=== PATIENT | female | born 1935 | race Caucasian/White ===

== ENCOUNTER 2018-01-14 13:58 | Emergency (ER) | payer MEDICARE, BC ==
[2018-01-14] MEDS ORDERED: XYLOCAINE 1% HCL 20 ML MDV ONE (14:13)
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
[2018-01-14] MEDS ORDERED: KEFLEX 250 MG/5 ML SUSP PO ONE (14:18)
[2018-01-14] MEDS ORDERED: Adacel Vial IM ONE ×2 (14:19→14:36)
[2018-01-14] MEDS ORDERED: KEFLEX 250 MG/5 ML SUSP ONE (14:36)
[2018-01-14] MEDS ORDERED: XYLOCAINE 1% HCL 20 ML MDV IJ ONE (14:40)
[2018-01-14 14:52] VITALS: BP 161/60; PULSE 97; O2SAT 99
== END 2018-01-14 14:51 | disposition home or self-care (01) ==
LOC: ED 13:58
DX: S01.81XA Laceration without foreign body of other part of head, initial encounter (principal); W20.8XXA Other cause of strike by thrown, projected or falling object, initial encounter
CPT/HCPCS: 12002; 90471; 90715; 99284; A9270-GY

== ENCOUNTER 2019-07-01 14:14 | Emergency (ER) | payer MEDICARE ==
[2019-07-01] MEDS ORDERED: XYLOCAINE 1%/Epi 1:100000 MDV 20 ML IJ ONE (15:14)
[2019-07-01] MEDS ORDERED: XYLOCAINE 1%/Epi 1:100000 MDV 20 ML ONE (15:15)
--- NOTE | 2019-07-01 15:29 | ERPHSYRPT ---
- History of Present Illness Time Seen by Provider: 07/01/19 14:45 Source: patient Exam Limitations: no limitations Patient Subjective Stated Complaint: "about 45 min ago I accidentally walked into a wall and hit my forehead on the wall" Triage Nursing Assessment: Aaox3, walked in, color good, c/o laceration to forehead s/p walked into a wall at home approx 45 min ago. Denies loss of conscioiusness, perrla, small laceration to left side upper forehead noted. No active bleeding at this time. Denies other injuries. Does c/o headache at this time. Laceration cleansed with ns and hibiclens soln here in ER. Physician History: Pt is an 84 yo female who has made degeneration and because of her decreased vision turned and hit her head on a cabinet. No loc. no other injury. Occurred: just prior to arrival Severity: mild Head Injury Location: frontal Method of Injury: direct blow, incised Loss of Consciousness: no loss of consciousness Associated Symptoms: denies symptoms Allergies/Adverse Reactions: No Known Drug Allergies Allergy (Unverified 01/14/18 14:09) Home Medications: Levothyroxine Sodium 175 mcg PO DAILY 01/14/18 [History] Lisinopril 40 mg PO DAILY 01/14/18 [History] Hx Tetanus, Diphtheria Vaccination/Date Given: Yes (2 years ago had dt states patient) Hx Influenza Vaccination/Date Given: Yes Hx Pneumococcal Vaccination/Date Given: No Immunizations Up to Date: Yes - Review of Systems Constitutional: No Fever, No Chills Eyes: No Symptoms Ears, Nose, & Throat: No Symptoms Respiratory: No Cough, No Dyspnea Cardiac: No Chest Pain, No Edema, No Syncope Abdominal/Gastrointestinal: No Abdominal Pain, No Nausea, No Vomiting, No Diarrhea Genitourinary Symptoms: No Dysuria Musculoskeletal: No Back Pain, No Neck Pain Skin: No Rash Neurological: No Dizziness, No Focal Weakness, No Sensory Changes Psychological: No Symptoms Endocrine: No Symptoms All Other Systems: Reviewed and Negative - Past Medical History Pertinent Past Medical History: Yes Neurological History: No Pertinent History Cardiac History: Hypertension Respiratory History: No Pertinent History Endocrine Medical History: Hypothyroidism Musculoskeletal History: Arthritis - Past Surgical History Past Surgical History: No - Social History Smoking Status: Former smoker Exposure to second hand smoke: No Drug Use: none Patient Lives Alone: No - Female History Hx Now: No - Nursing Vital Signs Nursing Vital Signs: Initial Vital Signs Temperature 97.8 F 07/01/19 14:34 Pulse Rate 80 07/01/19 14:34 Respiratory Rate 18 07/01/19 14:34 Blood Pressure 186/76 07/01/19 14:34 O2 Sat by Pulse Oximetry 98 07/01/19 14:34 Pain Scale Pain Intensity 3 - Sanjiv Coma Score Best Eye Response ([place]): (4) open spontaneously Best Verbal Response (Sanjiv): (5) oriented Best Motor Response (Sanjiv): (6) obeys commands Sanjiv Total: 15 - Physical Exam General Appearance: no apparent distress, alert Head Injury: lacerations (2.5 cm laceration left frontal scalp) SpO2: 98 Procedures - Laceration/Wound Repair Left Anterior Head Wound Location: Left, forehead Wound Length (cm): 2.5 Wound's Depth, Shape: superficial, linear Wound Explored: no foreign body noted Irrigated: Yes Hibiclens Prep: Yes Anesthesia: 1% lidocaine w/ Epi Volume Anesthetic (ccs): 5 Wound Debrided: minimal Wound Repaired With: [place] Number of Sutures: 6 Layer Closure?: No Number Deep Layer Sutures: 0 Sterile Dressing Applied?: No Splint Applied?: No Sling Applied?: No - Course Nursing assessment & vital signs reviewed: Yes Ordered Tests: Medication Summary Discontinued Medications Generic Name Dose Route Start Last Admin Trade Name Freq PRN Reason Stop Dose Admin Lidocaine/Epinephrine 5 ml 07/01/19 15:14 Xylocaine 1%/Epi 1:906210 Mdv 20 Ml IJ 07/01/19 15:15 STAT ONE Lidocaine/Epinephrine Confirm 07/01/19 15:15 Xylocaine 1%/Epi 1:[id number] Mdv 20 Ml Administered 07/01/19 15:16 Dose 5 ml .ROUTE .STK-MED ONE - Progress Progress: improved - Departure Departure Disposition: Home Clinical Impression: Laceration of scalp Condition: Stable Critical Care Time: No Referrals: MATTIE SANZ [Primary Care Provider] - Additional Instructions: katy out 5 daysLACERATION CARE 1. Do not use peroxide, merthiolate, alcohol, or betadine. 2. Keep wound clean and dry. 3. Change dressing if it becomes wet or soiled. 4. If you must work, wear protective covering. 5. You may return to the emergency department or see your family physician for suture removal. 6. See your family physician or return to the emergency department for any of the following signs or symptoms: A. Redness B. Swelling C. Discolored drainage D. Red streaks E. Elevated temperature F. Other signs of infection
[2019-07-01 16:12] VITALS: BP 143/79; PULSE 76; O2SAT 97
== END 2019-07-01 16:12 | disposition home or self-care (01) ==
LOC: ED 14:14
DX: S01.01XA Laceration without foreign body of scalp, initial encounter (principal); W22.01XA Walked into wall, initial encounter; Z79.899 Other long term (current) drug therapy; I10 Essential (primary) hypertension
CPT/HCPCS: 12001; 96372; 99283

== ENCOUNTER 2023-07-11 17:03 | Emergency (ER) | payer MEDICARE ==
[2023-07-11 17:40] VITALS: TEMP 97.4
[2023-07-11 18:05] VITALS: BP 162/83; PULSE 82; RESP 17; O2SAT 95
--- NOTE | 2023-07-11 18:14 | ERPHSYRPT ---
- History of Present Illness Time Seen by Provider: 07/11/23 17:36 Source: patient, family Exam Limitations: no limitations Patient Subjective Stated Complaint: Pt states "My blood pressure was up today and I have had a bad headache." Triage Nursing Assessment: Pt presented alert and oriented X 3, skin pwd. Pt ambulates iwtha n upright steady gait, able to speak in clear full sentences. Pt resting comfortably on the bed. Physician History: 88-year-old female with history of hypertension, hyperlipidemia, hypothyroidism presented in the ER with chief complaint of elevated blood pressure. Patient reports earlier her blood pressure was 213 systolic at home and she was having generalized headache with a feeling of pressure and soreness around all over her head. Blood pressure improved on its own and during my evaluation is in 140s. She has no headache at all. Denies any numbness tingling focal weakness, chest pain palpitations shortness of breath, abdominal pain or visual disturbance while she was having a headache or elevated blood pressure. Patient reports usually her blood pressure is less than 150 with current medications. No recent increased salt intake. Patient is stressed out from her assisted living neighbor who is bothering her again and again about a wandering dog for the last few days. Patient reports this give her a lot of anxiety even thinking about the dog. She is symptom-free currently. She wants to go home and does not want any workup done offered to her including EKG and CT head/chest x-ray. Her son who brought her also does not want anything to be done. Her exam is nonfocal, lungs bilateral clear to auscultation. Not in any distress. She is thoroughly counseled and recommended taking Tylenol as needed for headache and avoid NSAIDs. Discussed signs symptoms of worsening needing return to ER which she seems understanding. She is advised to keep a blood pressure log and follow-up with her primary care for reevaluation. Allergies/Adverse Reactions: No Known Drug Allergies Allergy (Verified 07/11/23 17:40) Home Medications: Levothyroxine Sodium 175 mcg PO DAILY 01/14/18 [History] lisinopriL [Lisinopril] 40 mg PO DAILY 01/14/18 [History] Diltiazem HCl [Cardizem LA] 120 mg PO DAILY 07/11/23 [History] Hx Tetanus, Diphtheria Vaccination/Date Given: Yes (2 years ago had dt states patient) Hx Influenza Vaccination/Date Given: Yes Hx Pneumococcal Vaccination/Date Given: No Immunizations Up to Date: No Travel Risk - International Travel Have you traveled outside of the country in past 3 weeks: No - Coronavirus Screening Are you exhibiting any of the following symptoms?: No Close contact with a COVID-19 positive Pt in past 14-21 Days: No - Vaccine Status Have you recieved a Covid-19 vaccination: Yes 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 - Vaccination Dates Date of 2cond Vaccination (if applicable): 2020 - Review of Systems Constitutional: No Symptoms Eyes: No Symptoms Ears, Nose, & Throat: No Symptoms Respiratory: No Symptoms Cardiac: No Symptoms Abdominal/Gastrointestinal: No Symptoms Genitourinary Symptoms: No Symptoms Musculoskeletal: No Symptoms Skin: No Symptoms Neurological: No Symptoms Endocrine: No Symptoms Hematologic/Lymphatic: No Symptoms - Past Medical History Pertinent Past Medical History: Yes Neurological History: No Pertinent History Cardiac History: Hypertension Respiratory History: No Pertinent History Endocrine Medical History: Hypothyroidism Musculoskeletal History: Arthritis - Past Surgical History Past Surgical History: Yes Other Surgical History: hysterectomy. bilat hip. left knee - Social History Smoking Status: Former smoker Exposure to second hand smoke: No Drug Use: none Patient Lives Alone: No - Nursing Vital Signs Nursing Vital Signs: Initial Vital Signs Temperature 97.4 F 07/11/23 17:36 Pulse Rate 114 H 07/11/23 17:36 Respiratory Rate 22 07/11/23 17:36 Blood Pressure 215/101 07/11/23 17:36 O2 Sat by Pulse Oximetry 98 07/11/23 17:36 Pain Scale Pain Intensity 0 - Physical Exam General Appearance: no apparent distress, alert Eye Exam: PERRL/EOMI Ears, Nose, Throat Exam: normal ENT inspection, TMs normal, pharynx normal, moist mucous membranes Neck Exam: normal inspection, non-tender, supple, full range of motion Respiratory Exam: normal breath sounds, lungs clear Cardiovascular Exam: regular rate/rhythm, normal heart sounds Gastrointestinal/Abdomen Exam: soft, normal bowel sounds, No tenderness Back Exam: normal inspection Extremity Exam: normal inspection, normal range of motion, pelvis stable Neurologic Exam: alert, oriented x 3, cooperative, investment broker II-XII nml as tested, nml cerebellar function, nml station & gait, sensation nml, No normal mood/affect (Anxious), No motor deficits SpO2 Interpretation: normal SpO2: 95 O2 Delivery: Room Air - Progress Progress: improved Progress Note: 07/11/23 18:13 88-year-old female with history of hypertension, hyperlipidemia, hypothyroidism presented in the ER with chief complaint of elevated blood pressure. Patient reports earlier her blood pressure was 213 systolic at home and she was having generalized headache with a feeling of pressure and soreness around all over her head. Blood pressure improved on its own and during my evaluation is in 140s. She has no headache at all. Denies any numbness tingling focal weakness, chest pain palpitations shortness of breath, abdominal pain or visual disturbance while she was having a headache or elevated blood pressure. Patient reports usually her blood pressure is less than 150 with current medications. No recent increased salt intake. Patient is stressed out from her assisted living neighbor who is bothering her again and again about a wandering dog for the last few days. Patient reports this give her a lot of anxiety even thinking about the dog. She is symptom-free currently. She wants to go home and does not want any workup done offered to her including EKG and CT head/chest x-ray. Her son who brought her also does not want anything to be done. Her exam is nonfocal, lungs bilateral clear to ausc ultation. Not in any distress. She is thoroughly counseled and recommended taking Tylenol as needed for headache and avoid NSAIDs. Discussed signs symptoms of worsening needing return to ER which she seems understanding. She is advised to keep a blood pressure log and follow-up with her primary care for reevaluation. Counseled pt/family regarding: diagnosis, need for follow-up Medical Desision Making - Independent Historian Additional History obtained from: Child - Departure Departure Disposition: Home Clinical Impression: Uncontrolled hypertension Condition: Stable Critical Care Time: No Referrals: MATTIE SANZ MD [Primary Care Provider] - Follow up with PCP 2 days Instructions: Malignant Hypertension (DC) Additional Instructions: Monitor your blood pressure regularly, keep a log and follow-up with primary care for reevaluation. Take low-salt diet. Return to ER for intractable headache, numbness tingling weakness, visual disturbance, chest pain palpitations or shortness of breath etc.
== END 2023-07-11 18:21 | disposition home or self-care (01) ==
LOC: ED 17:03
DX: I10 Essential (primary) hypertension (principal); R51.9 Headache, unspecified; Z79.899 Other long term (current) drug therapy
CPT/HCPCS: 99281